=== PATIENT | female | born 1965 | race American Indian/Alaskan Native ===

== ENCOUNTER 2021-10-22 11:28 | Emergency (ER) | payer OTHER ==
--- NOTE | 2021-10-22 13:20 | Emergency Department Report ---
ED General Adult HPI - General Chief complaint: Medical Clearance Stated complaint: I'M SICK Time Seen by Provider: 10/22/21 12:21 Source: patient Mode of arrival: Ambulatory Limitations: No Limitations - History of Present Illness Initial comments: 55-year-old female with past medical history of hyperthyroidism/Graves' disease presents to the ER today requesting a refill on her methimazole and her propanolol. Patient states that she was diagnosed with hyperthyroidism/Graves' disease when she went to the ER and was hospitalized at [facility] last year. She states that she was prescribed these 2 medications which she has been taking, but she has never followed up with her PCP since hospitalization and her diagnosis last year. She states that the main reason she is here is because she is running out of the medications and needs a refill. And also is requesting referral to another PCP. She reports no symptoms at this time. MD Complaint: Medication refill -: days(s) - Related Data Previous Rx's Medication Instructions Recorded Last Taken Type Propranolol LA [Inderal LA] 60 mg PO QDAY #30 capsule 10/22/21 Unknown Rx methIMAzole [Methimazole] 20 mg PO BID #90 tablet 10/22/21 Unknown Rx Allergies Allergy/AdvReac Type Severity Reaction Status Date / Time No Known Allergies Allergy Verified 10/22/21 11:35 ED Review of Systems ROS: Stated complaint: I'M SICK Other details as noted in HPI Comment: All other systems reviewed and negative Constitutional: denies: chills, diaphoresis, fever, malaise, weakness Eyes: denies: eye pain, eye discharge, vision change ENT: denies: ear pain, throat pain Respiratory: denies: cough, shortness of breath, SOB with exertion, SOB at rest, wheezing Cardiovascular: denies: chest pain, palpitations, dyspnea on exertion, edema, syncope, paroxysmal nocturnal dyspnea Gastrointestinal: denies: abdominal pain, nausea, diarrhea, hematemesis, hematochezia Genitourinary: denies: urgency, dysuria, frequency, hematuria, discharge, abnormal menses, dyspareunia Musculoskeletal: denies: back pain, joint swelling, arthralgia Skin: denies: rash, lesions, change in color, change in hair/nails, pruritus Neurological: denies: headache, weakness, numbness, paresthesias, confusion, abnormal gait, vertigo Psychiatric: denies: anxiety, depression, auditory hallucinations, visual hallucinations, homicidal thoughts, suicidal thoughts Hematological/Lymphatic: denies: easy bleeding, easy bruising ED Past Medical Hx - Medications Home Medications: Home Medications Medication Instructions Recorded Confirmed Last Taken Type Propranolol LA [Inderal LA] 60 mg PO QDAY #30 capsule 10/22/21 Unknown Rx methIMAzole [Methimazole] 20 mg PO BID #90 tablet 10/22/21 Unknown Rx ED Physical Exam - General Limitations: No Limitations General appearance: alert, in no apparent distress - Head Head exam: Present: atraumatic, normocephalic, normal inspection - Eye Eye exam: Present: normal appearance, PERRL, EOMI Pupils: Present: normal accommodation - ENT ENT exam: Present: normal exam, mucous membranes moist - Neck Neck exam: Present: normal inspection, full ROM - Respiratory Respiratory exam: Present: normal lung sounds bilaterally. Absent: respiratory distress, wheezes, rales, rhonchi - Cardiovascular Cardiovascular Exam: Present: regular rate, normal rhythm, normal heart sounds - GI/Abdominal GI/Abdominal exam: Present: soft. Absent: distended, tenderness, guarding - Neurological Exam Neurological exam: Present: alert, oriented X3, CN II-XII intact, normal gait - Psychiatric Psychiatric exam: Present: normal affect, normal mood - Skin Skin exam: Present: intact ED Course Vital Signs 10/22/21 10/22/21 11:34 13:38 Temperature 98.1 F 98.0 F Pulse Rate 79 67 Respiratory 16 15 Rate Blood Pressure 161/113 134/92 [Left] O2 Sat by Pulse 100 100 Oximetry Critical care attestation.: If time is entered above; I have spent that time in minutes in the direct care of this critically ill patient, excluding procedure time. ED Disposition Clinical Impression: Medication refill, History of Graves' disease Disposition: HOME / SELF CARE / HOMELESS Is pt being admited?: No Does the pt Need Aspirin: No Condition: Stable Instructions: Medicine Refill at the Emergency Department Additional Instructions: I recommend that you take your medication as prescribed most importantly you need to follow-up with the primary care doctors listed discharge instructions for continued refill any medications and continued evaluation of your thyroid disease. Return to the ER if anything changes or worsens. Prescriptions: Propranolol LA [Inderal LA] 60 mg PO QDAY #30 capsule methIMAzole [Methimazole] 20 mg PO BID #90 tablet Referrals: JOSEY ASHLEY MD [Staff Physician] - 3-5 Days ENDY CEDEÑO MD [Staff Physician] - 3-5 Days Time of Disposition: 13:20
[2021-10-22 13:39] VITALS: BP 134/92
== END 2021-10-22 13:40 | disposition home or self-care (01) ==
LOC: ED 11:28
DX: E05.00 Thyrotoxicosis with diffuse goiter without thyrotoxic crisis or storm (principal); Z76.0 Encounter for issue of repeat prescription; Z79.899 Other long term (current) drug therapy
CPT/HCPCS: 99282

== ENCOUNTER 2022-02-19 10:59 | Outpatient (CLI) | payer OTHER | END 2022-02-19 11:00 | disposition home or self-care (01) | LOC: MAMMO 10:59 | PROVIDERS: ATTEND Internal Medicine | DX: Z12.31 Encounter for screening mammogram for malignant neoplasm of breast (principal) | CPT/HCPCS: 77067 ==

== ENCOUNTER 2022-05-04 15:45 | Outpatient (CLI) | payer OTHER ==
--- NOTE | 2022-05-04 16:44 | XRay Report ---
Right hand 3 views INDICATION: Pain FINDINGS: MCP joints and appear normal. No acute fracture or dislocation is seen. No erosive or destr uctive change Signer Name: Joseph Zambrano MD Signed: 05/04/2022 4:40 PM Workstation Name: [id number]
[2022-05-04 16:49] LABS: Uric Acid 4.2 mg/dL (3.5-7.6)
[2022-05-04 16:58] LABS: C-Reactive Protein < 0.30 mg/dL (0.00-1.30)
== END 2022-05-04 15:46 | disposition home or self-care (01) ==
LOC: LABHHL 15:45
PROVIDERS: ATTEND Internal Medicine
DX: M79.641 Pain in right hand (principal); M13.0 Polyarthritis, unspecified
CPT/HCPCS: 36415; 84550; 85652; 86038; 86140; 86431